=== PATIENT | male | born 1945 | race Caucasian/White ===

== ENCOUNTER 2017-06-01 15:39 | Emergency (ER) | payer MEDICARE, MEDICAID ==
[~2017-06-01] VITALS: Ht 180.3 cm; Wt 86.2 kg
[~2017-06-01 15:39] MED LIST: FLEXERIL PO; HYDROCODON-ACE1 EAC7 PO; NAPROXEN 375 M375 M1 PO; NOHOMEMEDICATIONS; ONDANSETRON HCL4 M2 PO
[2017-06-01] MEDS ORDERED: MOBIC7.5 MG PO (17:15)
[2017-06-01 17:32] VITALS: BP 138/76
== END 2017-06-01 17:33 | disposition home or self-care (01) ==
LOC: M.ERS 15:39
DX: M71.22 Synovial cyst of popliteal space [Baker], left knee (principal); M25.462 Effusion, left knee